=== PATIENT | male | born 1970 | race Caucasian/White ===

== ENCOUNTER 2017-02-25 18:21 | Emergency (ER) ==
[2017-02-25 18:30] VITALS: BP 137/79; TEMP 97.9; BMI 21.8
--- NOTE | 2017-02-25 18:35 | ED.PDOC ---
General ED Provider: Dr. SHERLEY ENNIS Chief Complaint: Ankle Pain/Injury Stated Complaint: ANKLE AND FOOT PAIN RIGHT SIDED Time Seen by Physician: 18:30 (SEEN WITH JUSTIN, PT DENIED INJURY) Mode of Arrival: Walk-In Information Source: Patient Exam Limitations: No limitations Nursing and Triage Documentation Reviewed and Agree: Yes (THIS PROBLEM IS UNILTAERAL NO CALF PAIN ) Musculoskeletal Complaint Exam - Ankle/Foot Complaint/Exam Location of Injury: Reports: Right, Ankle, Foot Mechanism of Injury: Reports: No known trauma Onset/Duration: 4 DAYS Symptoms Are: Reports: Still present Onset of Pain: Reports: Days (X4) Initial Severity: Mild Current Severity: Mild Location: Reports: Discrete Character: Reports: Aching Alleviating: Reports: Rest, Position Aggravating: Reports: Movement, Weight bearing, Prolonged standing Able to Bear Weight: Yes Associated Signs and Symptoms: Reports: Swelling (MINIMAL RIGHT LATER AL ANKLE) . Denies: Redness, Bruising, Fever, Weakness, Numbness, Tingling Gout Risk Factors: Reports: >40 years old, Male Related Surgical History: Reports: None Lower Extremity Findings: Present: Swelling (ANKLE ) Achilles Tendon Abnormality: No Tenderness: Present: Lateral malleolus Limited Range of Motion: Present: Inversion, Eversion Differential Diagnosis: Closed Fracture, Sprain, Strain, Bursitis Review of Systems - Review Of Systems Constitutional: Reports: No symptoms Eyes: Reports: No symptoms Ears, Nose, Mouth, Throat: Reports: No symptoms Respiratory: Reports: No symptoms Cardiac: Reports: No symptoms GI: Reports: No symptoms : Reports: No symptoms Musculoskeletal: Reports: Other (ANKLE PAIN RIGHT SIDED ) Skin: Reports: No symptoms Neurological: Reports: No symptoms Endocrine: Reports: No symptoms Hematologic/Lymphatic: Reports: No symptoms All Other Systems: Reviewed and Negative Past Medical History - Past Medical History Previously Healthy: Yes Endocrine: Reports: None Cardiovascular: Reports: None Respiratory: Reports: None Hematological: Reports: None Gastrointestinal: Reports: None Genitourinary: Reports: None Neuro/Psych: Reports: None Musculoskeletal: Reports: None Cancer: Reports: None - Surgical History General Surgical History: Reports: None - Family History Family History: Reports: None - Social History Smoking Status: Current every day smoker, Light tobacco smoker Hx Substance Use: No Alcohol Screening: None Physical Exam - Physical Exam Appearance: Well-appearing, No pain distress, Well-nourished Eyes: FATUMA, EOMI, Conjunctiva clear ENT: Ears normal, Nose normal, Oropharynx normal Respiratory: Airway patent, Breath sounds clear, Breath sounds equal, Respirations nonlabored Cardiovascular: RRR, Pulses normal, No rub, No murmur GI/: Soft, Nontender, No masses, Bowel sounds normal, No Organomegaly Musculoskeletal: Normal strength, ROM intact, No edema, No calf tenderness Skin: Warm, Dry, Normal color Neurological: Sensation intact, Motor intact, Reflexes intact, Cranial nerves intact, Alert, Oriented Psychiatric: Affect appropriate, Mood appropriate Critical Care Note - Critical Care Note Total Time (mins): 0 Course - Course Orders, Labs, Meds: Orders Category Date Time Status ANKLE, RIGHT MIN 3 VIEWS Stat RADS 02/25/17 18:32 Ordered FOOT, RIGHT 3 VIEWS Stat RADS 02/25/17 18:32 Ordered Vital Signs: Temp Pulse Resp BP Pulse Ox 02/25/17 18:22 97.9 F 115 H 20 137/79 96 Departure - Departure Time of Disposition: 18:36 Disposition: HOME SELF-CARE Discharge Problem: Ankle pain Ankle pain, right Qualifiers: Chronicity: acute Qualified Code(s): M25.571 - Pain in right ankle and joints of right foot Condition: Good Pt referred to PMD for follow-up: Yes Additional Instructions: Please call your Family Physician as soon as possible to schedule a follow-up appointment.SINCE YOU HAVE NO LOCAL MD PLEASE CALL [facility] FOR FURTHER EVALUATION Prescriptions: Hydrocodone/Acetaminophen [[place] 10-325 Tablet] 1 each PO Q8HR #7 tablet Allergies/Adverse Reactions: Allergies No Known Allergies Allergy (Verified 02/25/17 18:31) Home Medications: Ambulatory Orders Hydrocodone/Acetaminophen [[place] 10-325 Tablet] 1 each PO Q8HR #7 tablet Disposition Discussed With: Patient
--- NOTE | 2017-02-26 07:03 | DI ---
EXAM: Right foot, three views. HISTORY: Right foot pain. COMPARISON: None. FINDINGS: AP, lateral and oblique views of the right foot. There are no acute or healing fractures. There are no lytic or blastic lesions. The soft tissues are normal. Bone mineralization is normal . There are no significant degenerative changes. IMPRESSION: Normal right foot.
--- NOTE | 2017-02-26 07:04 | DI ---
EXAM: Right ankle. Three view. HISTORY: Right ankle pain. COMPARISON: None. FINDINGS: AP, lateral and oblique views of the right ankle. There are no acute or healing fractures . There are no lytic or blastic lesions. Soft tissues are normal. There are no degenerative change s. The talar dome is intact. IMPRESSION: Normal right ankle.
== END 2017-02-25 18:50 | disposition home or self-care (01) ==
LOC: ED 18:21
DX: M25.571 Pain in right ankle and joints of right foot (principal); F17.210 Nicotine dependence, cigarettes, uncomplicated
CPT/HCPCS: 99282

== ENCOUNTER 2018-05-05 00:25 | Emergency (ER) ==
[2018-05-05 00:36] VITALS: TEMP 97.6; BMI 23.6
[2018-05-05] MEDS ORDERED: FUL-GLO OP STA (00:37)
[2018-05-05] MEDS ORDERED: TETRACAINE 0.5% UNIT-DOSE OP STA (00:37)
[2018-05-05] MEDS ORDERED: EYE-STREAM OP STA (00:42)
--- NOTE | 2018-05-05 00:58 | ED.PDOC ---
General ED Provider: Dr. SAIRA PETERSON Chief Complaint: Eye Problem Stated Complaint: thinks that a piece of broken cell phone glass went to his Rt eye while he was trying to remove something from it. Vision is still intact. Time Seen by Physician: 00:10 Mode of Arrival: Walk-In Information Source: Patient Nursing and Triage Documentation Reviewed and Agree: Yes Does patient meet sepsis criteria?: No System Inflammatory Response Syndrome: Not Applicable Sepsis Protocol: For patient's 13 years and over: Temp is 96.8 and below OR 101 and greater Pulse >90 BPM Resp >20/minute Acutely Altered Mental Status Are patient's symptoms suggestive of a new infection, such as: -Pneumonia -Skin, Soft Tissue -Endocarditis -UTI -Bone, Joint Infection -Implantable Device -Acute Abdominal Infection -Wound Infection -Meningitis -Blood Stream Catheter Infection -Unknown EENT Complaint Exam - Eye Complaint/Exam Onset/Duration: 12 hour Symptoms Are: Still present Timing: Constant Initial Severity: Mild Current Severity: Moderate Location: Right Character: Reports: Foreign body sensation Aggravating: Reports: Blinking Alleviating: Reports: None Associated Signs and Symptoms: Denies: Photophobia, Clear drainage, Purulent drainage, Vision impairment, Fever, Swelling Related History: Reports: Foreign body Eye Surgical History: Reports: None Penetrating Injury Risk Factors: None Globe Rupture Risk Factors: None Acute Glaucoma Risk Factors: None Optic Artery Occlusion Risk Factors: None Visual Field: Normal Extraocular Movement: Normal Orbit Findings: Normal Globe Findings: Intact Lid Findings: Erythema (right lower eye lid ) Conjunctival Findings: Red (right lower ) Corneal Findings: Clear Fluorescein Uptake: No Fundi: Normal Differential Diagnoses: Conjunctivitis, Foreign Body Review of Systems - Review Of Systems Constitutional: Reports: No symptoms Eyes: Reports: Foreign body sensation, Inflammation, Pain, Photophobia Ears, Nose, Mouth, Throat: Reports: No symptoms Respiratory: Reports: No symptoms Cardiac: Reports: No symptoms GI: Reports: No symptoms : Reports: No symptoms Musculoskeletal: Reports: No symptoms Skin: Reports: No symptoms Neurological: Reports: No symptoms Endocrine: Reports: No symptoms Hematologic/Lymphatic: Reports: No symptoms All Other Systems: Reviewed and Negative Past Medical History - Past Medical History Previously Healthy: Yes Endocrine: Reports: None Cardiovascular: Reports: None Respiratory: Reports: None Hematological: Reports: None Gastrointestinal: Reports: None Genitourinary: Reports: None Neuro/Psych: Reports: None Musculoskeletal: Reports: None Cancer: Reports: None - Surgical History General Surgical History: Reports: None - Family History Family History: Reports: None - Social History Smoking Status: Current every day smoker, Light tobacco smoker Hx Substance Use: No Alcohol Screening: None - Immunizations Tetanus Shot up to Date: Yes Physical Exam - Physical Exam Appearance: Well-appearing Pain Distress: Mild Eyes: FATUMA, EOMI, Conjunctiva inflammed (on the right eye ) Neck: Supple Respiratory: Airway patent, Breath sounds clear, Breath sounds equal, Respirations nonlabored Cardiovascular: RRR, Pulses normal, No rub, No murmur Neurological: Alert, Oriented Psychiatric: Anxious Critical Care Note - Critical Care Note Total Time (mins): 0 Course - Course Orders, Labs, Meds: Orders Category Date Time Status ED EYE IRRIGATION .ONCE EMERGENCY 05/05/18 00:38 Ordered Balanced Salt Solution [Eye-Stream] MEDS 05/05/18 00:42 Discontinued 1 bottle OP ONCE STA Fluorescein Sodium [Ful-Luly] MEDS 05/05/18 00:37 Stat 1 strip OP ONCE STA Tetracaine HCl/Pf [Tetracaine 0.5% Unit-Dose] MEDS 05/05/18 00:37 Stat 2 drop OP ONCE STA Medications Discontinued Medications Generic Name Dose Route Start Last Admin Trade Name Freq PRN Reason Stop Dose Admin Eye Irrigation Solution 1 bottle 05/05/18 00:42 05/05/18 00:45 Eye-Stream OP 05/05/18 00:43 1 bottle ONCE STA Administration Fluorescein Sodium 1 strip 05/05/18 00:37 05/05/18 00:43 Ful-Luly OP 05/05/18 00:38 1 strip ONCE STA Administration Tetracaine HCl 2 drop 05/05/18 00:37 05/05/18 00:42 Tetracaine 0.5% Unit-Dose OP 05/05/18 00:38 2 drop ONCE STA Administration Vital Signs: Temp Pulse Resp BP Pulse Ox 05/05/18 00:25 97.6 F 104 H 20 146/92 H 98 Departure - Departure Time of Disposition: 00:58 Disposition: HOME SELF-CARE Discharge Problem: Eye foreign body Qualifiers: Encounter type: initial encounter Laterality: right Qualified Code(s): T15.91XA - Foreign body on external eye, part unspecified, right eye, initial encounter Instructions: Eye Foreign Body (ED) Condition: Stable Pt referred to PMD for follow-up: Yes IPMP verified?: No Additional Instructions: Use 2 drops to right eye every 4 hours for 10 days Follow up with your eye doctor in 1-2 days return if worse. Allergies/Adverse Reactions: Allergies No Known Allergies Allergy (Verified 05/05/18 00:35) Home Medications: Ambulatory Orders 1 [No Reported Medications] 05/05/18 Disposition Discussed With: Patient
[2018-05-05] MEDS ORDERED: GENTAK OPTH OINT OP STA (00:59)
[2018-05-05 01:01] VITALS: BP 125/77
[2018-05-05] MEDS ORDERED: GENTAK OPTH SOL OP ONE (01:02)
[2018-05-05] MEDS ORDERED: GENTAK OPTH SOL OP STA (01:15)
== END 2018-05-05 01:19 | disposition home or self-care (01) ==
LOC: ED 00:25
DX: T15.91XA Foreign body on external eye, part unspecified, right eye, initial encounter (principal); F17.210 Nicotine dependence, cigarettes, uncomplicated
CPT/HCPCS: 99283